=== PATIENT | female | born 1955 | race Caucasian/White ===

== ENCOUNTER 2017-10-09 07:06 | Day surgery (SDC) | payer BC ==
[~2017-10-09] VITALS: Ht 165.1 cm; Wt 77.1 kg
[~2017-10-09 07:06] MED LIST: ACETAMINOPHEN PO; ALAVERT PO; ALBU90OI INH; ALLEGRA ALLERG180 M1 PO; CEPH500 PO; CETI10; CHOL10002 PO; CLEM1.34; DICLOFENAC 1.5% TOP; DOCU100 PO; EPIDUO FORTE 0.45 GM TOP; ESOM20; ESTR.05TPW; ESTR.625; ESTR2 PO; EZET10; EZET10 PO; Evening Primro500 M1 PO; FINACEA50 GM PO; GABA100; GABA800 PO; GAVILAX17 GM PO; HYDACE10B PO; Hair, Skin & N1 EACH PO; Halcion0.25 MG PO; Ipratropium Bro15 ML; Ipratropium Bro30 ML; MELA3 PO; MELO7.5; META800; METHI10 PO; MILK THISTLE PO; MULVIT; NITRO-BID 2% TOP; OXYACE5T PO; OXYC5 PO; PATANASE; PROM25 PO; RANI150 PO; SIME80CH PO; TRIAZOLAM PO; VICODIN 5-3001 EACH PO; ZOLP10 PO; ZOLP5 PO
== END 2017-10-09 11:57 | disposition home or self-care (01) ==
LOC: ORSCMMR 07:06
PROVIDERS: Surgery
PROC: 0WUF0JZ Supplement Abdominal Wall with Synthetic Substitute, Open Approach (ICD-10-PCS; principal; 2017-10-09 08:30)
DX: K43.2 Incisional hernia without obstruction or gangrene (principal); I10 Essential (primary) hypertension; J45.909 Unspecified asthma, uncomplicated; Z79.899 Other long term (current) drug therapy
CPT/HCPCS: C1781; J1100; J1170; J1885; J2250; J2405; J2710; J3010; J7120

== ENCOUNTER → 2020-01-06 | Outpatient (CLI) | payer BC | END | disposition home or self-care (01) | LOC: LAB SHORT 12:54 → LAB 12:54 | DX: L57.0 Actinic keratosis (principal) | CPT/HCPCS: 88305 ==

== ENCOUNTER 2022-07-17 10:09 | Day surgery (SDC) | payer BC ==
[~2022-07-17] VITALS: Ht 165.1 cm; Wt 79.9 kg
[~2022-07-17 10:09] MED LIST changes: +ALLEGRA ALLERG180 MG PO; +ALLERCLEAR10 MG PO; +BENEFIBER236 G1; +BONINE PO; +IPRATROPIUM BRO30 ML; +LOSA50 PO; +MAGNESIUM OXID500 MG; +MELATONIN5 M1 PO; +MILK THISTLE140 MG PO; +MIRALAX17 GM; +MULTIPLE VITAM1 EACH PO; +Methimazole5 MG PO; +NITROGLYCERIN 2%; +OXYM.05NI; +PRIMADOPHILUS PO; +PROAIR DIGIHAL90 MCG INH; +SYSTANE BALANCE10 ML BOTHEYES; +VICODIN PO; +VITAMIN B125000 MC1 PO; +VITAMIN D325 MC3 PO; +ZADITOR5 M1 BOTHEYES; +[UNRECOGNIZED DRUG - OTHER]; +[UNRECOGNIZED DRUG - OTHER] PO
[2022-07-17] MEDS ORDERED: Flonase 0.05% N16 GM (10:59)
[2022-07-17] MEDS ORDERED: PRED20 PO (10:59)
[2022-07-17] MEDS ORDERED: LOSA50 (10:59)
[2022-07-17] MEDS ORDERED: EZET10 (11:00)
[2022-07-17] MEDS ORDERED: PROAIR DIGIHAL90 MCG (11:00)
[2022-07-17] MEDS ORDERED: ATROVENT HFA12.9 GM (11:00)
[2022-07-17] MEDS ORDERED: Halcion0.25 MG (11:00)
[2022-07-17] MEDS ORDERED: MORP15ER (11:00)
[2022-07-17] MEDS ORDERED: ALLEGRA ALLERG180 MG (11:01)
--- NOTE | 2022-07-17 12:03 | NUR ---
07/17/22 1203 Magdy Senior LIDOCAINE 2 % 1:100,000 MIXED 1:1 W/ NORMAL SALINE PER ODER TO MAKE LIDOCAINE 1% 1:200,000 FOR INJECTION AT [facility] BY DR. OBRIEN.
--- NOTE | 2022-07-17 14:36 | NUR ---
07/17/22 1436 Kwame Ramirez PT REPORTED TOLERABLE 2/10 PAIN UPON DISCHARGE. A SMALL AMOUNT OF BLOOD BEGAN SEEPING FROM INCISION, WHILE PATIENT WAS BEING WHEELED TO HER CAR. PT WAS GIVEN GAUZE AND ADVISED TO HOLD GENTLE PRESSURE.
== END 2022-07-17 13:00 | disposition home or self-care (01) ==
LOC: ORSCSDS 10:09
PROVIDERS: Otolaryngology
PROC: 03BT0ZX Excision of Left Temporal Artery, Open Approach, Diagnostic (ICD-10-PCS; principal; 2022-07-17 11:15)
DX: M31.6 Other giant cell arteritis (principal); I10 Essential (primary) hypertension; K21.9 Gastro-esophageal reflux disease without esophagitis; M79.7 Fibromyalgia; G47.33 Obstructive sleep apnea (adult) (pediatric); J45.909 Unspecified asthma, uncomplicated; Z79.899 Other long term (current) drug therapy
CPT/HCPCS: J1100; J2250; J3010; J7120

== ENCOUNTER → 2023-10-09 | Outpatient (CLI) | payer BC ==
[~2023-10-09] MED LIST changes: +ALLEGRA ALLERG180 MG; +ATROVENT HFA12.9 GM; +Flonase 0.05% N16 GM; +Halcion0.25 MG; +LOSA50; +MORP15ER; +PRED20 PO; +PROAIR DIGIHAL90 MCG
[2023-10-10 10:55] LABS: Candida species (DNA Probe) Negative (NEGATIVE); G. vaginalis (DNA Probe) Positive (NEGATIVE); T. vaginalis (DNA Probe) Negative (NEGATIVE)
== END ==
LOC: LAB SHORT 17:22 → LAB 17:22
PROVIDERS: Obstetrics & Gynecology
DX: N89.8 Other specified noninflammatory disorders of vagina (principal)
CPT/HCPCS: 87480; 87510; 87660

== ENCOUNTER 2023-11-15 15:49 | Emergency (ER) | payer BC ==
[~2023-11-15] VITALS: Ht 162.6 cm; Wt 78.9 kg
[2023-11-15 16:01] VITALS: BP 188/95
[2023-11-15 16:42] LABS: BASOPHILS ABSOLUTE AUTO 0.05 K/mm3 (0.00-0.23); BASOPHILS PERCENT AUTO 1 % (0-2); EOSINOPHILS ABSOLUTE AUTO 0.36 K/mm3 (0.00-0.68); EOSINOPHILS PERCENT AUTO 5 % (0-6); Hematocrit 44.7 % (33.0-51.0); Hemoglobin 14.9 g/dL (11.5-16.0); IMMATURE GRAN ABSOLUTE AUTO 0.02 K/mm3 (0.00-0.10); IMMATURE GRAN PERCENT AUTO 0 % (0-1); LYMPHOCYTES ABSOLUTE AUTO 1.81 K/mm3 (0.84-5.20); LYMPHOCYTES PERCENT AUTO 26 % (21-46); MONOCYTES ABSOLUTE AUTO 0.52 K/mm3 (0.16-1.47); MONOCYTES PERCENT AUTO 7 % (4-13); Mean Corpuscular HGB 29.3 pg (26.0-34.0); Mean Corpuscular HGB Conc 33.3 g/dL (31.5-36.5); Mean Corpuscular Volume 88 fL (80-100); Mean Platelet Volume 9.8 fL (9.1-12.4); NEUTROPHILS ABSOLUTE AUTO 4.26 K/mm3 (1.96-9.15); NEUTROPHILS PERCENT AUTO 61 % (41-73); Platelet Count 451 K/mm3 (150-400); RDW Coefficient Variation 13.7 % (11.7-14.2); RDW Standard Deviation 44.1 fL (35.1-46.3); Red Blood Cell Count 5.08 M/mm3 (3.80-5.20); White Blood Cell Count 7.02 K/mm3 (4.00-11.30)
[2023-11-15 17:03] LABS: Albumin, Blood 3.6 g/dL (3.4-5.0); Albumin/Globulin Ratio 0.9 (0.8-1.8); Bilirubin, Total 0.4 mg/dL (0.1-1.0); Bun/Creatinine Ratio 22.7 (12.0-20.0); Creatinine, Blood 0.66 mg/dL (0.40-1.00); Potassium, Blood 3.8 mmol/L (3.5-5.5); Total Protein, Blood 7.6 g/dL (6.4-8.2)
== END 2023-11-15 18:58 | disposition home or self-care (01) ==
LOC: ER 15:49
PROVIDERS: Physician Assistant
DX: K29.70 Gastritis, unspecified, without bleeding (principal); K42.9 Umbilical hernia without obstruction or gangrene; Z79.52 Long term (current) use of systemic steroids; Z79.899 Other long term (current) drug therapy; Z88.0 Allergy status to penicillin; Z88.1 Allergy status to other antibiotic agents; Z88.5 Allergy status to narcotic agent; Z88.6 Allergy status to analgesic agent; Z88.8 Allergy status to other drugs, medicaments and biological substances
CPT/HCPCS: 74177; 80053; 83690; 85025; 99284-25; Q9967

== ENCOUNTER → 2025-01-29 | Outpatient (CLI) | payer BC ==
[2025-02-01 04:28] LABS: CREATININE,URINE - PER 24H 935 mg/d (500-1400); CREATININE,URINE - PER VOLUME 44 mg/dL; HOURS COLLECTED 24 hr; METANEPHRINE,UR - RATIO TO CRT 80 ug/g CRT (0-300); METANEPHRINE,URINE - PER 24H 74 ug/d (36-229); METANEPHRINE,URN - PER VOLUME 35 ug/L; NORMETANEPHRINE,U - PER VOLUME 145 ug/L; NORMETANEPHRINE,URN - PER 24H 308 ug/d (95-650); NORMETANEPHRINE,URN/CRT RATIO 330 ug/g CRT (0-400); TOTAL VOLUME 2125 mL
== END ==
LOC: LAB SHORT 09:10 → LAB 09:10
PROVIDERS: Internal Medicine Endocrinology, Diabetes & Metabolism
DX: E05.00 Thyrotoxicosis with diffuse goiter without thyrotoxic crisis or storm (principal); I10 Essential (primary) hypertension
CPT/HCPCS: 81050; 83835